=== PATIENT | male | born 1945 | race Caucasian/White ===

== ENCOUNTER 2017-05-16 09:43 | Outpatient (CLI) | payer MEDICARE, OTHER ==
[2016-05-09 10:09] VITALS: BP 149/82
[2017-05-16 10:12] LABS: EOSINOPHILS % 5.5 % (0.0-6.8); MEAN CORPUSCULAR HEMOGLOBIN 32.1 pg (28.0-34.0); MONOCYTES % 5.9 % (0.0-11.0); NEUTROPHILS # 4.8 # k/uL (1.4-7.7)
--- NOTE | 2017-05-16 14:41 | Diagnostic Imaging Report ---
RODRI CLEMENTS [facility] [address] [facility]. [address] [place], [place]. [address] Report Submission Date: May 16, 2017 11:40:07 AM CDT Patient Study Name: ELICIA ESPINOZA Date: May 16, 2017 10:08:11 AM CDT Modality Type: US Gender: M Description: DPLX SCN XTRCRAN ART CMP COURTNEY : 41 Institution: [facility] Physician: RODRI CLEMENTS Examination: Carotid artery ultrasound History: Stenosis Comparison exams: 18 June 2015 Findings: Right carotid: Common carotid artery peak systolic velocity 69.5 cm/s; end diastolic velocity 16.2 cm/s. Internal carotid artery peak systolic velocity 178.0 cm/s; end diastolic velocity 57.8 cm/s. External carotid artery velocity to 88.0 cm/s. Vertebral artery velocity 39.1 cm/s Vertebral flow antegrade. Plaque narrows the Common Carotid Artery by 63% Left carotid: Common carotid artery peak systolic velocity 82.8 cm/s; end diastolic velocity 27.1 cm/s. Internal carotid artery peak systolic velocity 133.9 cm/s; end diastolic velocity 41.2 cm/s. External carotid artery velocity to 98.3 cm/s. Vertebral artery velocity 93.1 cm/s Vertebral flow antegrade. Plaque narrows the Common Carotid Artery by 50% Right ICA/CCA Ratio: 2.6: previously 3.3 Left ICA/CCA Ratio 1.6: previously 1.3 Impression: Bilateral common carotid artery narrowing/plaquing as described above which appears to have increased since the June 2015 examination. Continued restriction to hemodynamic flow: right greater than left. Electronically signed on May 16, 2017 11:40:07 AM CDT by: Wm ASHTON
== END 2017-05-16 09:44 ==
LOC: RAD 09:43
PROVIDERS: ATTEND Family Medicine
DX: Z00.00 Encounter for general adult medical examination without abnormal findings (principal); E78.5 Hyperlipidemia, unspecified; I10 Essential (primary) hypertension; E53.8 Deficiency of other specified B group vitamins; I65.23 Occlusion and stenosis of bilateral carotid arteries
CPT/HCPCS: 36415; 80053; 80061; 82607; 84153; 85025; 93880